=== PATIENT | female | born 1940 | race Caucasian/White ===

== ENCOUNTER → 2017-04-19 | Outpatient (REF) | payer OTHER ==
[~2017-04-19] MED LIST: ALEN70TA39 PO; CIPR-250 PO; CLOB-25 TOP; MAGO400T PO; PERCOCET PO; TAMO10TA PO; TYLE325T5 PO
[2017-04-19 18:19] LABS: VITAMIN B12 LEVEL 958 PG/ML (247-911)
== END ==
LOC: M LAB REF 16:24
PROVIDERS: ATTEND Internal Medicine
DX: R41.3 Other amnesia (principal); R47.9 Unspecified speech disturbances

== ENCOUNTER → 2018-02-02 | Outpatient (REF) | payer OTHER ==
[2018-02-02 17:43] LABS: C REACTIVE PROTEIN QUANTITATIV < 0.30 MG/DL (0.00-0.30)
[2018-02-02 17:43] LABS: RHEUMATOID FACTOR QUANT < 10.0 IU/ML (<15.0)
[2018-02-06 00:07] LABS: ANTINUCLEAR ANTIBODIES DIRECT Negative (Negative)
== END ==
LOC: M LAB REF 16:39
DX: M25.50 Pain in unspecified joint (principal)
CPT/HCPCS: 86140

== ENCOUNTER → 2018-10-05 | Outpatient (REF) | payer OTHER | LOC: M LAB REF 14:53 | DX: R19.7 Diarrhea, unspecified (principal) | CPT/HCPCS: 87507 ==

== ENCOUNTER → 2018-10-09 | Outpatient (REF) | payer OTHER ==
[2018-10-09 12:51] LABS: C REACTIVE PROTEIN QUANTITATIV 3.04 MG/DL (0.00-0.30)
== END ==
LOC: M LAB REF 12:19
DX: S80.811A Abrasion, right lower leg, initial encounter (principal); X58.XXXA Exposure to other specified factors, initial encounter; Y92.9 Unspecified place or not applicable
CPT/HCPCS: 86140

== ENCOUNTER → 2019-04-06 | Outpatient (REF) | payer OTHER ==
[~2019-04-06] MED LIST changes: -ALEN70TA39 PO; +ALEN70TA74 PO
== END ==
LOC: M LAB REF 08:53
DX: I95.1 Orthostatic hypotension (principal)

== ENCOUNTER → 2019-06-27 | Outpatient (REF) | payer OTHER | LOC: M LAB REF 19:05 | PROVIDERS: ATTEND Physician Assistant | DX: S81.802D Unspecified open wound, left lower leg, subsequent encounter (principal) ==

== ENCOUNTER → 2021-05-04 | Outpatient (CLI) | payer MEDICARE ==
[~2021-05-04] MED LIST changes: -ALEN70TA74 PO; +ALEN70TA82 PO
--- NOTE | 2021-05-04 11:57 | REP ---
INDICATION: RT LEG OPEN WOUND. COMPARISON: None. TECHNIQUE: Multiple ultrasonographic images of the deep venous structures of the right lower extremity were obtained from the inguinal ligament to the ankle. Venous compression techniques, color doppler imaging, and augmentation techniques were also obtained where appropriate. As per the ACR guidelines the anterior tibial vein can not be effectively evaluated. Only compression techniques in the calf on the peroneal and posterior tibial veins was attempted/performed. FINDINGS: There is no abnormal echogenic material seen within any of the visualized deep venous structures that would suggest acute thrombosis. Coaptation is unremarkable throughout. Doppler interrogation shows an expected response to respiratory variability and augmentation in the thigh. Compression techniques in the calf showed no abnormality. The color flow images show what appears to be a normal vascular pattern throughout the thigh. Reflux was seen in the common femoral vein An anterior accessory greater saphenous vein was present, however, no reflux was noted. Reflux was seen in the greater saphenous vein at the saphenofemoral junction of 5.8 seconds duration the AP dimension of which measured 6 mm. Reflux was seen in the greater saphenous vein at mid thigh of 6.1 seconds duration the AP dimension of which measured 6 mm. Reflux was seen in the greater saphenous vein at the knee of 3.5 seconds duration the AP dimension of which measured 5 mm. No reflux was seen in any portion of the superficial femoral vein, popliteal vein, or lesser saphenous vein the AP dimension of which measured 2 mm. IMPRESSION: There is no ultrasonographic evidence of deep venous thrombosis involving any of the visualized deep venous structures of the right lower extremity as described above. Due to Right lower extremity reflux study as described above. <Electronically signed by Gt Dukes > 05/04/21 [id number]
== END ==
LOC: M RAD 10:44
PROVIDERS: ATTEND Physician Assistant
DX: S81.801A Unspecified open wound, right lower leg, initial encounter (principal); I87.311 Chronic venous hypertension (idiopathic) with ulcer of right lower extremity; L97.812 Non-pressure chronic ulcer of other part of right lower leg with fat layer exposed; X58.XXXA Exposure to other specified factors, initial encounter; Y92.9 Unspecified place or not applicable; Y99.9 Unspecified external cause status

== ENCOUNTER → 2022-03-29 | Outpatient (CLI) | payer MEDICARE | LOC: M RAD 15:36 | PROVIDERS: ATTEND Internal Medicine | DX: R42 Dizziness and giddiness (principal); I65.22 Occlusion and stenosis of left carotid artery ==

== ENCOUNTER 2025-08-19 10:24 | Emergency (ER) | payer MEDICARE, OTHER ==
[~2025-08-19] VITALS: Ht 157.5 cm; Wt 54.5 kg
[~2025-08-19 10:24] MED LIST changes: -TAMO10TA PO; +TAMO10TA8 PO
[2025-08-19 12:57] LABS: BASO # 0.0 10^3/uL (0.0-0.2); BASO % 0.3 % (0.0-1.0); EOS # 0.0 10^3/uL (0.0-0.5); EOS % 0.0 % (0.0-3.0); LYMPH # 1.4 10^3/uL (1.5-5.0); LYMPH % 19.7 % (24.0-44.0); MONO # 0.8 10^3/uL (0.0-0.8); MONO % 10.5 % (2.0-8.0); NEUTROPHILS # 4.9 10^3/uL (1.5-8.5); NEUTROPHILS % 69.1 % (36.0-66.0); PLATELET COUNT, AUTOMATED 296 10^3/uL (150-450)
[2025-08-19] MEDS ORDERED: REXU1TAB4 PO (13:11)
[2025-08-19] MEDS ORDERED: SERT25TA21 PO (13:11)
[2025-08-19] MEDS ORDERED: HOME MED LIST COMPLETE! XX SCH (13:15)
[2025-08-19 13:29] LABS: KETONE, URINE AUTO RFX NEGATIVE (NEGATIVE); LEUKOCYTE ESTERASE UR AUTO RFX NEGATIVE (NEGATIVE); NITRITE, URINE AUTO RFX NEGATIVE (NEGATIVE); RBC, URINE AUTO RFX 1 /HPF (0-3); SQUAM EPITHELIAL CELL UR AURFX 0 /HPF (0-6); WBC, URINE AUTO RFX 0 /HPF (0-3)
[2025-08-19 13:47] LABS: CALCIUM LEVEL 8.8 MG/DL (8.3-10.6); CARBON DIOXIDE LEVEL 25.2 MMOL/L (20-31); CHLORIDE LEVEL 106.0 MMOL/L (98-107); CREATININE FOR GFR 0.55 MG/DL (0.55-1.30); GLOMERULAR FILTRATION RATE 88.7 (>32); POTASSIUM SERUM 3.8 MMOL/L (3.5-5.1); SODIUM LEVEL 142.0 MMOL/L (136-145)
[2025-08-19 16:00] VITALS: BP 153/73; TEMP 97.9; O2SAT 96
== END 2025-08-19 16:15 | disposition home or self-care (01) ==
LOC: M ED 10:24 → EDBD 10:24 → M ED 16:15
DX: G30.9 Alzheimer's disease, unspecified (principal); F02.C18 Dementia in other diseases classified elsewhere, severe, with other behavioral disturbance; M51.369 Other intervertebral disc degeneration, lumbar region without mention of lumbar back pain or lower extremity pain; Z79.899 Other long term (current) drug therapy